=== PATIENT | male | born 1945 | race Caucasian/White ===

== ENCOUNTER 2017-09-22 10:27 | Emergency (ER) | payer MEDICARE, OTHER ==
--- OUTSIDE RECORDS SUMMARY | 2017-09-22 10:35 | XMS REPORT ---
:1945 External Reference #:[id number] Author Organization [facility] Address [address] [place] [address] Phone [phone] Care Team Providers Name Role Phone Arabella Portillo M.D. Primary Care Physician Unavailable Payers Type Date Identification Numbers Payment Provider Subscriber Medicare Primary Policy Number: [id number] Medicare - NGS Pal Caruso PayID: [id number] [address] [facility] [place] [address] Commercial Policy Number: [id number] [employer] Ppo/Pos/Epo/Nap Pal Caruso Group Number: [id number] [address] PayID: [id number] [place] [address] Problems Date Description Provider Status Onset: Carneous mole Active Note: BEHIND RIGHT EAR Onset: Kidney stone Active Onset: Type 2 diabetes mellitus Active Note: 2008 Onset: Pure hypercholesterolemia Active Onset: History of placement of stent for Active coronary artery disease Onset: 05/07/2016 Primary open angle glaucoma of left Pal Raymond M.D. Active eye Onset: 10/17/2014 Severe / Advanced / End Stage Glaucoma Pal Raymond M.D. Active Onset: 10/17/2014 Nuclear senile cataract Pal Raymond M.D. Active Onset: 10/17/2014 Primary open angle glaucoma Pal Raymond M.D. 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 every mornin g. Travatan Z 10/16 Active Solution 0.004% 1 drop Pal Zhu left Arleo, eye M.D. every night Benazepril HCL 00 Active Tablets 5mg 1 Unknown /0000 every day Nifedipine 00 Active Capsules 20mg every Unknown /0000 day Lipitor 00 Active Tablets 20mg Unknown /0000 Hydrochlorothiazide 0000 Active Tablets 25mg Unknown /0000 Aspir-[address] 81mg Unknown /0000 Metformin HCL ER 00 Active Tablets ER 1000mg every Unknown (Osm) /0000 24HR day Metoprolol Succinate Active Tablets ER 25mg once Maghaydah ER /0000 24HR daily , Qutajudson Rodriguez Fish Oil Active Capsules DR 1000mg 1 by Unknown /0000 mouth every day Pred Forte 11/05 Hx Suspension 1% 5ml One H40.1122 Pal Zhu drop Segundo - sheeba Gonzalez.DChance 12/24 times a day in the left eye for three days, then discon tinue. Multi For Him 50+ 00/00 Hx Tablets every Unknown /0000 day - 11/03 Clopidogrel Bisulfate Hx Tablets 75mg once Stefek, /0000 daily Wing Rodriguez - 10/18 Vital Signs Date Vital Result Comment 11/18/2016 BP Systolic 138 mmHg BP Diastolic 83 mmHg Heart Rate 74 /min Respiratory Rate 15 /min Results Description No Information Procedures Date CPT Code Description Status 04/29/2017 22250 Visual Field Exam Extended Completed 03/27/2017 08192 Scanning Computerized Ophthalmic Diagnostic Imag Completed Posterior Seg On 03/27/2017 58411 Est Patient Intermediate Exam Completed 11/18/2016 58809 Trabeculoplasty By Laser Surgery Completed 11/05/2016 48024 Visual Field Exam Extended Completed 11/05/2016 23857 Est Patient Intermediate Exam Completed 05/07/2016 69097 Est Patient Intermediate Exam Completed 10/20/2015 07220 Est Patient Comprehensive Exam Completed 10/20/2015 64963 Determination Of Refractive State Completed 10/20/2015 95534 Visual Field Exam Extended Completed 10/20/2015 51909 Scanning Computerized Ophthalmic Diagnostic Imag Completed Posterior Seg On 04/18/2015 11548 Est Patient Intermediate Exam Completed 10/17/2014 85869 Fundus Photography With Interpretation And Report Completed 10/17/2014 42900 Visual Field Exam Extended Completed 10/17/2014 61984 Est Patient Comprehensive Exam Completed 04/18/2014 27372 Gonioscopy Completed 04/18/2014 42756 Est Patient Intermediate Exam Completed 10/25/2013 71908 Visual Field Exam Extended Completed 10/25/2013 87475 Est Patient Intermediate Exam Completed 07/26/2013 54034 Est Patient Comprehensive Exam Completed 07/26/2013 85560 Scanning Computerized Ophthalmic Diagnostic Imag Completed Posterior Seg On 01/28/2013 97923 Visual Field Exam Extended Completed 01/21/2013 78025 Est Patient Intermediate Exam Completed 07/20/2012 39418 Fundus Photography With Interpretation And Report Completed 07/20/2012 73294 Est Patient Intermediate Exam Completed 03/03/2012 24958 Scanning Computerized Ophthalmic Diagnostic Imag Completed Posterior Seg On 03/03/2012 24320 Visual Field Exam Extended Completed 03/03/2012 45008 Est Patient Intermediate Exam Completed 06/27/2011 64222 Trabeculoplasty By Laser Surgery Completed 06/11/2011 84523 Visual Field Exam Extended Completed 05/20/2011 48391 Est Patient Intermediate Exam Completed 02/18/2011 05627 Visual Field Exam Extended Completed 02/18/2011 52577 Pachymetry Completed 02/08/2011 49970 Scanning Computerized Opthalmic Diagnostic Posterior Completed Seg Retina 02/08/2011 60739 Est Patient Comprehensive Exam Completed 12/23/2008 12148 Est Patient Comprehensive Exam Completed 04/01/2007 13218 Est Patient Comprehensive Exam Completed 11/05/2004 86544 Determination Of Refractive State Completed 11/05/2004 27233 New Patient Comprehensive Exam Completed Encounters Type Date Location Provider CPT E/M Dx Office Visit 04/29/2017 Pal Raymond MD, [place], [address] H40.1122 9:45a pc M.D. E11.9 H25.13 Office Visit 12/25/2016 8:15a Pal Raymond MD, [place], [address] H40.1122 pc M.D. E11.9 H25.13 Office Visit 08/08/2011 9:15a Pal Raymond MD, Pal [place], [address] 365.11 pc M.D. 365.73 Office Visit 06/11/2011 9:15a Pal Raymond MD, Pal [place], [address] 365.11 pc M.D. 365.73 Plan of Care 08/28/2017 - Pal Raymond M.D.H40.1122 Primary open-angle glaucoma, left eye , moderate stageComments:Smoking can increase the risk of developing or worsening any eye related disease, as well as affect your overall health. If you are a smoker, we strongly recommend that you quit.If you are not a smoker, we strongly recommend that you do not start. Your glaucoma is stable at this time in your left eye.Your eye pressure is within an acceptable range, and your testing does not show any further deterioration at this time. Please continue your treatment as directed and keep follow up appointments.Follow up:4 Month Follow Up DFE/IOP OCT ON Visual Field 30-2 You can expect to have your eyes dilated at yournext visit. If Dr. Raymond orders any additional testing, it may require extra time. We recommend thatyou bring sunglasses, as dilation drops often make you light sensitive until they wear off. We always recommend you bring someone to drive you home if you are uncomfortable driving with your eyes dilated. If you have any questions before your next visit, feel free to call our office at .e11.4 Type 2 diabetes mellitus without complicationsComments:You have diabetes. I do not detect any changes in both of your retinas from diabetes at this time. Proper control of your diabetes is important for the health of your eyes. Changes in your eyes from diabetes can happen without symptoms, so it is important that you have your eyes examined. Dr. Raymond has sent a report to your primary care doctor, letting them know there is no damage from the Diabetes in your eyes.H25.13 Age-related nuclear cataract, bilateralComments:You have been diagnosed with cataracts. If you are happy with your vision as it is now, then we willsee you at your next scheduled appointment. If you feel like your vision is getting worse before your scheduled appointment, please call Ying or Kathleen at [phone].
[2017-09-22 11:04] VITALS: BP 97/65
--- NOTE | 2017-09-22 12:05 | UC ---
Wero Zurita Gabriel, scribed for Vishal Orellana MD on 09/22/17 at 1052 . General HPI - HPI Summary HPI Summary: This patient is a 72 year old M presenting to [facility] accompanied by his with a chief complaint of watery diarrhea that began 5 days ago. The patient rates the pain 0/10 in severity. Patient reports fatigue. Patient denies vomiting, dehydration, pain, nausea, and blood in his stool. Pt had fever, chills, and myalgia that resolved after the first day. No recent abx use. - History of Current Complaint Stated Complaint: DIARRHEA Time Seen by Provider: 09/22/17 10:44 Hx Obtained From: Patient Onset/Duration: Lasting Days - 5, Still Present Timing: Intermittent Episodes Lasting: Onset Severity: Mild Current Severity: Mild Pain Intensity: 0 Associated Signs & Symptoms: Positive: Other - diarrhea and fatigue. Negative: Abdominal Pain, Edema, Nausea, Vomiting - Allergy/Home Medications Allergies/Adverse Reactions: Allergies Allergy/AdvReac Type Severity Reaction Status Date / Time phenytoin [From Dilantin] Allergy Itching Verified 09/22/17 10:38 PMH/Surg Hx/FS Hx/Imm Hx Endocrine History: Diabetes Cardiovascular History: Hypertension GI/ History: Kidney Stones Other History Of: Negative For: HIV - Surgical History Surgical History: Yes Surgery Procedure, Year, and Place: 1986 brain aneurysm [facility]. [place] [facility]STOSCOPY, RIGHT RETROGRADE, URETERAL DILATION, URETEROSCOPY, [place]RETERAL [place] [facility] [place] 2 CARDIAC [place] [facility]ITH[place] [facility] - Family History Known Family History: Negative: Renal Disease, Seizure Disorder - Social History Occupation: Employed Full-time Lives: With Family Alcohol Use: Daily Alcohol Amount: 3 beers/day Substance Use Type: None Smoking Status (MU): Former Smoker Type: Cigarettes Amount Used/How Often: 2PPD 25 YEARS Length of Time of Smoking/Using Tobacco: 25 YEARS Have You Smoked in the Last Year: No When Did the Patient Quit Smoking/Using Tobacco: 1986 - Immunization History Most Recent Influenza Vaccination: 2012 Most Recent Tetanus Shot: unknown Most Recent Pneumonia Vaccination: never Review of Systems Constitutional: Fatigue Gastrointestinal: Diarrhea All Other Systems Reviewed And Are Negative: Yes Physical Exam - Summary Physical Exam Summary: General: well-appearing, no pain distress Skin: warm, color reflects adequate perfusion, dry Head: normal Eyes: EOMI, TENZIN ENT: normal Neck: supple, nontender Respiratory: CTA, breath sounds present Cardiovascular: RRR Abdomen: soft, mildly TTP in the left lower lateral ABD without rebound or guarding Bowel: normal Musculoskeletal: normal, strength/ROM intact Neurological: sensory/motor intact, A&O x3 Psychological: affect/mood appropriate Triage Information Reviewed: Yes Vital Signs: Initial Vital Signs Temp 99.9 F 09/22/17 10:43 Pulse 77 09/22/17 10:43 Resp 18 09/22/17 10:43 BP 97/65 09/22/17 10:43 Pulse Ox 96 09/22/17 10:43 Vital Signs Reviewed: Yes Course/Dx - Course Course Of Treatment: NO C/O ABD PAIN OR FEVER. HAS NOT SEEN ANY BLOOD IN HIS STOOL. NO HX DEVERTICULITIS OR ABD SURGERY. DISCUSSED IV FLUIDS IN CLINIC. THE PATIENT STATED HE FELT HE COULD DRINK FLUIDS ENOUGH TO KEEP FROM GETTING DEHYDRATED. ON EXAM, THERE IS A MINIMALLY TENDER AREA IN THE LLQ WITHOUT REBOUND. AT THIS TIME, THE PLAN IS TO CONTINUE PO HYDRATION AND AWAIT STOOL/ LAB RESULTS TO DETERMINE NEED FOR ABX/IVF. IF STOOL RESULTS ARE NORMAL, THE PATIENT MAY START USING IMMODIUM DIRECTED. WE DISCUSSED GOING TO THE ED FOR PAIN, FEVER, DEHYDRATION, BLOOD IN THE STOOL OR ANY CONCERNS. - Differential Dx - Multi-Symptom Provider Diagnoses: DIARRHEA Discharge - Sign-Out/Discharge Documenting (check all that apply): Discharge/Admit/Transfer - Discharge Plan Condition: Stable Disposition: HOME Patient Education Materials: Acute Diarrhea (ED) Referrals: Arabella Maurice MD [Primary Care Provider] - Additional Instructions: FOLLOW UP WITH YOUR DOCTOR. THE RESULTS OF YOUR STOOL TESTS AND BLOOD WORK ARE PENDING. GET RECHECKED FOR ANY WORSENING OF YOUR CONDITION; PAIN, FEVER, DEHYDRATION, YOU FEEL ILL OR QUESTIONS OR CONCERNS. - Billing Disposition and Condition Condition: STABLE Disposition: HOME The documentation as recorded by the Wero wen Gabriel accurately reflects the service I personally performed and the decisions made by me, Vishal Orellana MD.
[2017-09-22 14:10] LABS: Hematocrit 42 % (42-52); Hemoglobin 14.3 g/dl (14.0-18.0); Mean Corpuscular HGB Conc 34 g/dl (31-36); Mean Corpuscular Hemoglobin 30 pg (27-31); Mean Corpuscular Volume 86 fL (80-94); Mean Platelet Volume 8.1 um3 (7.4-10.4); Platelet Count 247 10^3/ul (150-450); Red Blood Count 4.84 10^6/ul (4.0-5.4); Red Cell Distribution Width 13 % (10.5-15)
[2017-09-22 14:35] LABS: ABS Basophils 0 10^3/ul (0-0.2); ABS Eosinophils 0 10^3/ul (0-0.6); ABS Lymphocytes 1.4 10^3/ul (1.0-4.8); ABS Monocytes 2.4 10^3/ul (0-0.8); ABS Neutrophils 7.2 10^3/ul (1.5-7.7)
[2017-09-22 14:37] LABS: Monocytes % 17 % (0-7)
--- NOTE | 2017-09-23 08:26 | UC ---
- Progress Note Progress Note: RN to call pt. Advised to go to the Emergency Departement. I spoke RN at Dr. Portillo's office 08:30am. Hx DM. Highly elevated CRP. + fecal blood + lactoferrin. Bglucose 210mg / dl. Discharge - Sign-Out/Discharge Documenting (check all that apply): Post-Discharge Follow Up - Discharge Plan Condition: Stable Disposition: HOME Patient Education Materials: Acute Diarrhea (ED) Referrals: Arabella Portillo MD [Primary Care Provider] - Additional Instructions: FOLLOW UP WITH YOUR DOCTOR. THE RESULTS OF YOUR STOOL TESTS AND BLOOD WORK ARE PENDING. GET RECHECKED FOR ANY WORSENING OF YOUR CONDITION; PAIN, FEVER, DEHYDRATION, YOU FEEL ILL OR QUESTIONS OR CONCERNS. - Billing Disposition and Condition Condition: STABLE Disposition: HOME
== END 2017-09-22 11:55 | disposition home or self-care (01) ==
LOC: UCEAST 10:27
DX: R19.7 Diarrhea, unspecified (principal); R53.83 Other fatigue; E11.9 Type 2 diabetes mellitus without complications; Z79.84 Long term (current) use of oral hypoglycemic drugs; I10 Essential (primary) hypertension; Z87.442 Personal history of urinary calculi; Z95.5 Presence of coronary angioplasty implant and graft; Z88.8 Allergy status to other drugs, medicaments and biological substances; Z87.891 Personal history of nicotine dependence
CPT/HCPCS: 36415; 80053; 82270; 83630; 85025; 86140; 87045; 87046; 87077; 87328; 87329; 87493; 99201; G0463

== ENCOUNTER 2017-09-23 09:57 | Emergency (ER) | payer MEDICARE, OTHER ==
[2017-09-23] MEDS ORDERED: NS 0.9% 1000 ML* 1,000 ML IV ONE ×2 (10:21→11:55)
[2017-09-23 10:58] LABS: Hematocrit 41 % (42-52); Hemoglobin 14.1 g/dl (14.0-18.0); Mean Corpuscular HGB Conc 35 g/dl (31-36); Mean Corpuscular Hemoglobin 30 pg (27-31); Mean Corpuscular Volume 85 fL (80-94); Mean Platelet Volume 7.6 um3 (7.4-10.4); Platelet Count 257 10^3/ul (150-450); Red Blood Count 4.79 10^6/ul (4.0-5.4); Red Cell Distribution Width 13 % (10.5-15); White Blood Count 9.9 10^3/ul (3.5-10.8)
[2017-09-23 11:48] LABS: EGFR Non-African American 59.7 (>60)
[2017-09-23] MEDS ORDERED: Potassium Chlor TAB* 20 MEQ TAB.ER PO ONE (11:54)
[2017-09-23 11:57] LABS: Urine Appearance Cloudy; Urine Blood Negative (Negative); Urine Color Amber; Urine Ketones Negative (Negative); Urine Protein Negative (Negative); Urine Specific Gravity 1.016 (1.010-1.030); Urine Urobilinogen Negative (Negative)
[2017-09-23 12:28] LABS: ABS Basophils 0 10^3/ul (0-0.2); ABS Eosinophils 0.1 10^3/ul (0-0.6); ABS Lymphocytes 1.4 10^3/ul (1.0-4.8); ABS Monocytes 2.3 10^3/ul (0-0.8); ABS Neutrophils 6.1 10^3/ul (1.5-7.7); ABS Nucleated RBC 0 10^3/ul; Eosinophil % 0.7 % (0-6); Lymphocyte % 14.2 % (25-47); Nucleated Red Blood Cells % 0.2
[2017-09-23] MEDS ORDERED: Magnesium Oxide TAB* 400 MG PO ONE (13:15)
[2017-09-23] MEDS ORDERED: Diphenoxylat/Atrop 2.5-0.025M* 1 TAB PO ONE (13:15)
[2017-09-23 13:38] VITALS: BP 116/64
--- NOTE | 2017-09-24 13:26 | UC ---
- Progress Note Progress Note: Pt's stool sample, both from UC and ED resulted postive for Campylobacter. Spoke with PCP office -Dr. Ramirez - pt was seen the office at 12:[address] Ramirez - updated results She will call patient and arrange plan of care regarding consideration of abx reports pt was feeling better today [facility] 09/24/3017 14:15 Course/Dx - Diagnoses Provider Diagnoses: Diarrhea Discharge - Sign-Out/Discharge Documenting (check all that apply): Post-Discharge Follow Up - Discharge Plan Condition: Stable Disposition: HOME Prescriptions: Diphenoxylat/Atrop 2.5-0.025M* [Lomotil TAB*] 1 tab PO QID PRN #10 tab MDD 4 PRN Reason: Diarrhea Patient Education Materials: Acute Diarrhea (ED) Referrals: Arabella Maurice MD [Primary Care Provider] - 3 Days Additional Instructions: Please follow up with your primary care provider. RETURN TO THE ED FOR ANY NEW OR WORSENING SYMPTOMS. - Billing Disposition and Condition Condition: STABLE Disposition: HOME
--- NOTE | 2017-09-25 21:21 | ED ---
Josue Zurita Angela, scribed for Lai Molina MD on 09/23/17 at 1051 . GI/ HPI - HPI Summary HPI Summary: This pt is a 72 y/o male [facility] for the past 5 days. Pt reports he has had watery diarrhea, non bloody and without mucous. Denies abd pain, nausea, vomiting, fever. He states he has had chills and cold sweats associated. He denies recent antibiotic use in the past several weeks. Pt denies recent travel and sick contacts. He went to Urgent Care yesterday and was told to come to the ED for abnormal blood results. Pt denies having any of these symptoms in the past before. - History of Current Complaint Chief Complaint: EDGeneral Time Seen by Provider: 09/23/17 10:21 Stated Complaint: DIARRHEA,ABNORMAL BLOODWORK-SENT F/CC Hx Obtained From: Patient Onset/Duration: Started Days Ago, Still Present Timing: Lasting Days Current Severity: None Pain Intensity: 0 - denies pain Associated Signs and Symptoms: Positive: Diarrhea, Chills. Negative: Nausea, Vomiting, Black Tarry Stool, Bright Red Blood w/Stool, Blood w/Stool, Fever, Abdominal Pain Aggravating Factor(s): Nothing Alleviating Factor(s): Nothing - Allergy/Home Medications Allergies/Adverse Reactions: Allergies Allergy/AdvReac Type Severity Reaction Status Date / Time phenytoin [From Dilantin] Allergy Itching Verified 09/23/17 10:08 Home Medications: Home Medications Aspirin EC TAB* [Ecotrin EC Low Dose 81 MG*] 81 mg PO DAILY 09/23/17 [History Confirmed 09/23/17] Benazepril (NF) [Lotensin (NF)] 40 mg PO DAILY 09/23/17 [History Confirmed 09/23] Metformin ER (NF) 1,000 mg PO BID 09/23/17 [History Confirmed 09/23/17] NIFEdipine ER TAB* [Procardia Xl TAB*] 90 mg PO DAILY 09/23/17 [History Confirmed 09/23/17] Timolol 0.5% OPTH.FORTINO* [Timoptic 0.5% Opth*] 1 drop LEFT EYE QAM 09/23/17 [ History Confirmed 09/23/17] PMH/Surg Hx/FS Hx/Imm Hx Endocrine/Hematology History: Reports: Hx Diabetes - TYPE 2, ON METFORMAN BID Cardiovascular History: Reports: Hx Aneurysm, Hx Coronary Artery Disease - CARDIAC STENT X 2 2013, CHOLESTEROL CONTROL WITH MEDS, Hx Hypercholesterolemia, Hx Hypertension - ON DAILY MEDS Respiratory History: Reports: Hx Sleep Apnea History: Reports: Hx Kidney Stones - Hx OF, SOME PASSED BY PT, SOME SHOCKWAVE , 1 CURRENT ON RIGHT Sensory History: Reports: Hx Contacts or Glasses - READING GLASSES, Hx Glaucoma - DAILY DROP, LEFT EYE Denies: Hx Hearing Aid Opthamlomology History: Reports: Hx Contacts or Glasses - READING GLASSES, Hx Glaucoma - DAILY DROP, LEFT EYE Neurological History: Reports: Other Neuro Impairments/Disorders - brain aneurysm 1986 - Surgical History Surgery Procedure, Year, and Place: 1986 brain aneurysm [facility]. 2007 UMBILICAL HERNIAL REPAIR, [facility]. 2010 CYSTOSCOPY, RIGHT RETROGRADE, URETERAL DILATION, URETEROSCOPY, URETERAL STONE EXTRACTION, [facility]. 11/11/2013 2 CARDIAC STENTS, [facility]. 01/2015 LITHOTRIPSY LEFT RENAL CALCULUS, [facility] Anesthesia Reactions: No Infectious Disease History: No Infectious Disease History: Denies: Traveled Outside the [place] in Last 30 Days - Family History Known Family History: Negative: Renal Disease, Seizure Disorder - Social History Alcohol Use: Daily Alcohol Amount: 3 beers/day Substance Use Type: Reports: None Smoking Status (MU): Former Smoker Type: Cigarettes Amount Used/How Often: 2PPD 25 YEARS Length of Time of Smoking/Using Tobacco: 25 YEARS Have You Smoked in the Last Year: No Review of Systems Constitutional: Other - cold sweats Positive: Chills. Negative: Fever ENT: Negative Cardiovascular: Negative Positive: Diarrhea. Negative: Abdominal Pain, Vomiting, Nausea Musculoskeletal: Negative Skin: Negative Neurological: Negative All Other Systems Reviewed And Are Negative: Yes Physical Exam - Summary Physical Exam Summary: VITAL SIGNS: Reviewed. GENERAL: Patient is a well-developed and nourished male who is lying comfortable in the stretcher. Patient is not in any acute respiratory distress. HEAD AND FACE: No signs of trauma. No ecchymosis, hematomas or skull depressions. No sinus tenderness. EYES: PERRLA, EOMI x 2, No injected conjunctiva, no nystagmus. EARS: Hearing grossly intact. Ear canals and tympanic membranes are within normal limits. MOUTH: Oropharynx within normal limits. NECK: Supple, trachea is midline, no adenopathy, no JVD, no carotid bruit, no c- spine tenderness, neck with full ROM. CHEST: Symmetric, no tenderness at palpation LUNGS: Clear to auscultation bilaterally. No wheezing or crackles. CVS: Regular rate and rhythm, S1 and S2 present, no murmurs or gallops appreciated. ABDOMEN: Soft, non-tender. No signs of distention. No rebound no guarding, and no masses palpated. Bowel sounds are normal. EXTREMITIES: FROM in all major joints, no edema, no cyanosis or clubbing. NEURO: Alert and oriented x 3. No acute neurological deficits. Speech is normal and follows commands. SKIN: Dry and warm Triage Information Reviewed: Yes Vital Signs On Initial Exam: Initial Vitals Temp Pulse Resp BP Pulse Ox 98.1 F 79 16 98/60 99 09/23/17 10:05 09/23/17 10:05 09/23/17 10:05 09/23/17 10:05 09/23/17 10:05 Vital Signs Reviewed: Yes Diagnostics - Vital Signs Vital Signs Temp Pulse Resp BP Pulse Ox 09/23/17 10:44 99/65 09/23/17 10:05 98.1 F 79 16 98/60 99 - Laboratory Result Diagrams: 09/23/17 10:38 09/23/17 10:38 Lab Statement: Any lab studies that have been ordered have been reviewed, and results considered in the medical decision making process. - EKG 10:27 Cardiac Rate: NL - at 75 bpm EKG Rhythm: Sinus Rhythm EKG Interpretation: No ST elevation. T wave inversion in lead III. Q waves in III, aVF. Re-Evaluation - Re-Evaluation First Eval Re-Evaluation Time: 13:21 Comment: I reviewed the lab results with the pt. He will be discharged home. GIGU Course/Dx - Course Assessment/Plan: Pt is a 72 y/o male presenting to [facility] c/o diarrhea for the past 5 days. Pt reports he has had watery diarrhea, non bloody and without mucous. Denies abd pain, nausea, vomiting, fever. He states he has had chills and cold sweats associated. He denies recent antibiotic use in the past several weeks. Pt denies recent travel and sick contacts. Test results without any significant abnormalities except for sodium of 128, potassium of 3, for which he was given potassium chloride, creatinine of 1.2, magnesium of 1.6, for which he was given magnesium oxide, CRP of 124. I did give the pt a couple of liters of IV fluids and the pt reports he feels better. He was able to give us a urine sample and it is negative for UTI. He provided a stool sample and is negative for C. diff. The rest of the stool culture is pending at this time. The pt was also given Lomotil since the C. diff was negative. Since the pt does not have abdominal pain, nausea, or vomiting, I think the pt can be discharged home with follow up from his PCP. I will give the pt a prescription for Lomotil for 2 days. I discussed all the findings and test results with the patient. All questions were answered to patient satisfaction. There were no further complaints or concerns. Pt is hemodynamically stable, alert and oriented x3. He was recommended to return to the ED for fever, chills, nausea, vomiting or any other worsening symptoms. - Diagnoses Provider Diagnoses: Diarrhea Discharge - Sign-Out/Discharge Documenting (check all that apply): Discharge/Admit/Transfer - discharge - Discharge Plan Condition: Stable Disposition: HOME Prescriptions: Diphenoxylat/Atrop 2.5-0.025M* [Lomotil TAB*] 1 tab PO QID PRN #10 tab MDD 4 PRN Reason: Diarrhea Patient Education Materials: Acute Diarrhea (ED) Referrals: Arabella Maurice MD [Primary Care Provider] - 3 Days Additional Instructions: Please follow up with your primary care provider. RETURN TO THE ED FOR ANY NEW OR WORSENING SYMPTOMS. The documentation as recorded by the Josue wen Angela accurately reflects the service I personally performed and the decisions made by me, Lai Molina MD.
== END 2017-09-23 13:36 | disposition home or self-care (01) ==
LOC: ED 09:57
DX: R19.7 Diarrhea, unspecified (principal); E11.9 Type 2 diabetes mellitus without complications; I10 Essential (primary) hypertension; E78.00 Pure hypercholesterolemia, unspecified; Z79.84 Long term (current) use of oral hypoglycemic drugs; Z79.899 Other long term (current) drug therapy; Z87.891 Personal history of nicotine dependence; Z88.8 Allergy status to other drugs, medicaments and biological substances
CPT/HCPCS: 36415; 80053; 81003; 82140; 82150; 82272; 83605; 83630; 83690; 83735; 85025; 86140; 87040; 87045; 87046; 87077; 87493; 87899; 93005; 96360; 99283; A9270-GY

== ENCOUNTER 2018-03-03 19:43 | Emergency (ER) | payer MEDICARE, OTHER ==
[2018-03-03 19:55] VITALS: BP 136/68
--- NOTE | 2018-03-03 20:10 | UC ---
Minor Trauma HPI - HPI Summary HPI Summary: The patient is a 72-year-old male who fell on Friday landing against the dresser. He has had some left-sided mid to lower back pain. He has had extensive bruising of the left back and flank. He is not having severe pain. He is not short of breath. He has not noticed any blood in his urine. - History of Current Complaint Chief Complaint: UCTrauma Stated Complaint: FLANK INJURY Time Seen by Provider: 03/03/18 19:48 Hx Obtained From: Patient Onset/Duration: Sudden Onset, Lasting Days Onset Of Pain: Immediate Severity Initially: Moderate Severity Currently: None Pain Intensity: 0 Pain Scale Used: 0-10 Numeric Mechanism Of Injury: Fall From A Standing Position Aggravating Factor(s): Other: - laying on injured area Alleviating Factor(s): Nothing Associated Signs And Symptoms: Positive: Ecchymosis, Swelling Body - Head: 1 - hematoma 2 - ecchymosis - Allergies/Home Medications Allergies/Adverse Reactions: Allergies Allergy/AdvReac Type Severity Reaction Status Date / Time phenytoin [From Dilantin] Allergy Itching Verified 03/03/18 19:55 Home Medications: Home Medications Aspirin 81 mg CHEW TAB* [Aspirin Low Dose TAB*] 81 mg PO DAILY 03/03/18 [ History Confirmed 03/03/18] Ibuprofen TAB* [Advil TAB*] 400 mg PO PRN 03/03/18 [History] PMH/Surg Hx/FS Hx/Imm Hx Previously Healthy: Yes Endocrine History: Diabetes, Dyslipidemia Cardiovascular History: Cardiac Disease, Hypertension Other History Of: Negative For: HIV - Surgical History Surgical History: Yes Surgery Procedure, Year, and Place: 1986 brain aneurysm [facility]. 2007 [place] [facility] [place] CYSTOSCOPY, RIGHT RETROGRADE, URETERAL DILATION, URETEROSCOPY, [place] ST[place]TRA[place] [facility] [place]/11/2013 2 CARD[place] [place], [facility] [place]/2015 LITHOTRIP[place] [facility] [place] - Family History Known Family History: Positive: Hypertension Negative: Renal Disease, Seizure Disorder - Social History Alcohol Use: Daily Alcohol Amount: 1 BEER/DAY Substance Use Type: None Smoking Status (MU): Former Smoker Type: Cigarettes Amount Used/How Often: 2PPD 25 YEARS Length of Time of Smoking/Using Tobacco: 25 YEARS Have You Smoked in the Last Year: No When Did the Patient Quit Smoking/Using Tobacco: 1986 - Immunization History Most Recent Influenza Vaccination: 2012 Most Recent Tetanus Shot: unknown Most Recent Pneumonia Vaccination: never Review of Systems Constitutional: Negative Skin: Bruising Eyes: Negative ENT: Negative Respiratory: Negative Cardiovascular: Negative Gastrointestinal: Negative Genitourinary: Negative Motor: Negative Neurovascular: Negative Musculoskeletal: Negative Neurological: Negative Psychological: Negative All Other Systems Reviewed And Are Negative: Yes Physical Exam Triage Information Reviewed: Yes Appearance: Well-Appearing, No Pain Distress, Well-Nourished Vital Signs: Initial Vital Signs Temp 99.6 F 03/03/18 19:49 Pulse 78 03/03/18 19:49 Resp 16 03/03/18 19:49 BP 136/68 03/03/18 19:49 Pulse Ox 99 03/03/18 19:49 Vital Signs Reviewed: Yes Eyes: Positive: Conjunctiva Clear ENT: Positive: Hearing grossly normal. Negative: Nasal congestion, Nasal drainage, Trismus, Muffled voice, Hoarse voice Neck: Positive: Supple, Nontender Respiratory: Positive: Chest non-tender, Lungs clear, Normal breath sounds, No respiratory distress Cardiovascular: Positive: RRR, No Murmur Abdomen Description: Positive: Nontender, No Organomegaly, Soft Musculoskeletal: Positive: ROM Intact, No Edema Neurological: Positive: Alert Psychological Exam: Normal Skin Exam: Normal Diagnostics - Laboratory Diagnostic Studies Completed/Ordered: UA (-) for blood - Radiology No standard instances Radiology Interpretation Completed By: ED Physician Summary of Radiographic Findings: no rib fx noted by me Minor Trauma Course/Dx - Differential Dx/Diagnosis Provider Diagnoses: Hematoma left lower back Discharge - Sign-Out/Discharge Documenting (check all that apply): Patient Departure All imaging exams completed and their final reports reviewed: No - Discharge Plan Condition: Stable Disposition: HOME Referrals: Arabella Maurice MD [Primary Care Provider] - - Billing Disposition and Condition Condition: STABLE Disposition: Home
[2018-03-04 11:15] LABS: Hematocrit 32 % (42-52); Hemoglobin 10.8 g/dl (14.0-18.0); Mean Corpuscular HGB Conc 35 g/dl (31-36); Mean Corpuscular Hemoglobin 30 pg (27-31); Mean Corpuscular Volume 88 fL (80-94); Mean Platelet Volume 8.3 fL (7.4-10.4); Platelet Count 232 10^3/ul (150-450); Red Blood Count 3.59 10^6/ul (4.00-5.40); Red Cell Distribution Width 13 % (10.5-15); White Blood Count 11.3 10^3/ul (3.5-10.8)
[2018-03-04 11:40] LABS: ABS Basophils 0.1 10^3/ul (0-0.2); ABS Eosinophils 0.2 10^3/ul (0-0.6); ABS Monocytes 1.7 10^3/ul (0-0.8); ABS Neutrophils 6.3 10^3/ul (1.5-7.7); ABS Nucleated RBC 0 10^3/ul; Eosinophil % 1.4 % (0-6); Lymphocyte % 26.4 % (25-47); Nucleated Red Blood Cells % 0.1
--- NOTE | 2018-03-04 16:01 | UC ---
- Results/Orders Results/Orders: please let pt know his blood count is a little low due to the hematoma Discharge - Sign-Out/Discharge Documenting (check all that apply): Post-Discharge Follow Up All imaging exams completed and their final reports reviewed: Yes - Discharge Plan Condition: Stable Disposition: HOME Patient Education Materials: Hematoma (ED) Referrals: Halima Lindsey MD [Medical Doctor] - 3 Days Additional Instructions: A blood count is pending I suggest surgical follow up in case this needs to be aspirated or drained cool compresses tylenol 0fficial XR reading pending - Billing Disposition and Condition Condition: STABLE Disposition: Home
== END 2018-03-03 20:46 | disposition home or self-care (01) ==
LOC: UCEAST 19:43
DX: S30.0XXA Contusion of lower back and pelvis, initial encounter (principal); W01.190A Fall on same level from slipping, tripping and stumbling with subsequent striking against furniture, initial encounter; Y92.019 Unspecified place in single-family (private) house as the place of occurrence of the external cause; Z87.891 Personal history of nicotine dependence
CPT/HCPCS: 36415; 81003; 85025; 99211; G0463

== ENCOUNTER 2019-01-13 06:15 | Day surgery (SDC) | payer MEDICARE, OTHER ==
[~2019-01-13 06:15] MED LIST: Buffered Lidocaine 1% SYRIN* 1 ML/SYRINGE INTRADERM ONE; Proparacaine 0.5% OPHTH.SOL* 15 ML BTL ONE; mitoMYcin PWD* 0.2 MG in Sterile Water for Inj* 1 ML OPHTHALMIC SCH
[2019-01-13] MEDS ORDERED: Bupivacaine 0.25% SDV PF* 10 ML VIAL INJ ONE ×2 (07:11→07:30)
[2019-01-13] MEDS ORDERED: Povidone Iodine 5% OPTH* 30 ML BTL ONE (07:12)
[2019-01-13] MEDS ORDERED: Acetylcholine 1:100 OPTH* OPHTH.SOLN ONE (07:12)
[2019-01-13] MEDS ORDERED: Atropine 1% OPHTH.SOL* 1 DROP BTL 2-5 ML ONE (07:12)
[2019-01-13] MEDS ORDERED: Neomycin/Polymy/Dex OPTH.SUSP* MAXITROL 0.1% 5 ML ONE (07:12)
[2019-01-13] MEDS ORDERED: Lidocaine 2% w/ EPI 1:200,000* 20 ML SDV VIAL ONE ×2 (07:12→07:30)
[2019-01-13] MEDS ORDERED: Triamcinolone Acetonide* 40 MG/ML 1 ML VIAL ONE (07:12)
[2019-01-13] MEDS ORDERED: BSS OPTH.SOL* BTL ONE (07:12)
[2019-01-13] MEDS ORDERED: Hyaluronidase OVINE* 200 UNIT/ML ML SUBCUT ONE (07:13)
[2019-01-13] MEDS ORDERED: Carbachol 0.01% OPH.SOL* 1.5 ML OPHTH.SOLN ONE (07:16)
[2019-01-13] MEDS ORDERED: Midazolam* 1 MG/ML 2 ML VIAL (2 MG) ONE (07:16)
[2019-01-13] MEDS ORDERED: Sodium Bicarbonate 8.4% VIAL* 10 ML VIAL IV ONE (07:17)
[2019-01-13] MEDS ORDERED: fentaNYL* 50 MCG/ML 2 ML VIAL (100 MCG VIAL) ONE (07:35)
[2019-01-13] MEDS ORDERED: Propofol* 10 MG/ML 20 ML BTL ONE (07:45)
[2019-01-13 08:33] VITALS: BP 88/51
--- NOTE | 2019-01-13 21:38 | OP ---
DATE OF OPERATION: 01/13/19 [facility] DATE OF : 47 SURGEON: Pal Raymond MD. ANESTHESIA: Local with MAC. PRE-OP DIAGNOSIS: Uncontrolled glaucoma, left eye. POST-OP DIAGNOSIS: Uncontrolled glaucoma, left eye. OPERATIVE PROCEDURE: Trabeculectomy, left eye. COMPLICATIONS: None. DESCRIPTION OF PROCEDURE: The patient was given retrobulbar anesthesia in the operating room; 50:50 mixture of 0.25% Marcaine and 2% lidocaine, 1 vial of Vitrase added; 4 cc given in the muscle cone without difficulty. Eye was prepped and draped in the usual sterile fashion. Lid speculum was placed. A 6- 0 silk traction suture placed through the superior limbus and the eye rotated inferiorly. A fornix- based conjunctival peritomy was performed from the 12 o' clock to the 2 o'clock position using the Hector scissors. Mitomycin-C 0.2 mg /mL was soaked in a sponge and placed subtenon for 1 minute and thoroughly irrigated. A triangular limbal based half scleral thickness flap was made with the crescent blade. Anterior chamber entered deep with the 3 mm keratome. Miostat and then DisCoVisc instilled into the anterior chamber. Trabecular block 3 x 1 mm was excised using the Chelsea punch and the scleral flap sutured with one 10-0 nylon at its apex. The conjunctiva was closed using a running locking 10- 0 nylon suture and running locking 10-0 Vicryl suture. Paracentesis was made at the 3 o'clock position with the #75 blade. All traction sutures were removed. Anterior chamber reinflated with balanced salt solution. All wounds were found to be watertight. Kenalog 40 mg/mL, 1 mL, was given subtenon infratemporally, and topical atropine and Maxitrol given, and the eye was patched. [id number]/[facility] #: [id number] [facility]
== END 2019-01-13 08:50 | disposition home or self-care (01) ==
LOC: OREAST 06:15
PROVIDERS: ATTEND Specialist
DX: H40.1122 Primary open-angle glaucoma, left eye, moderate stage (principal); E11.9 Type 2 diabetes mellitus without complications; Z79.84 Long term (current) use of oral hypoglycemic drugs; E78.00 Pure hypercholesterolemia, unspecified; Z95.5 Presence of coronary angioplasty implant and graft; I25.10 Atherosclerotic heart disease of native coronary artery without angina pectoris; I10 Essential (primary) hypertension; Z85.828 Personal history of other malignant neoplasm of skin; G47.33 Obstructive sleep apnea (adult) (pediatric); E78.5 Hyperlipidemia, unspecified
CPT/HCPCS: A9270-GY; J2250; J2704; J3010; J3301; J3471; J3490; J9280

== ENCOUNTER 2019-08-08 14:55 | Emergency (ER) | payer MEDICARE, OTHER ==
--- OUTSIDE RECORDS SUMMARY | 2019-08-08 15:15 | XMS REPORT | Continuity of Care Document ---
:1945 External Reference #:[id number] Author Name Pal Raymond M.D. Address [address] [place] [address] Care Team Providers Name Role Phone Arabella Portillo M.D. - Family Care Team Information Irrigation Engineer [phone] Medicine Problems Active Problems Provider Date Carneous mole Onset: Note: BEHIND RIGHT EAR Kidney stone Onset: Type 2 diabetes mellitus Onset: Note: 2008 Pure hypercholesterolemia Onset: History of placement of stent for coronary Onset: artery disease Primary open angle glaucoma Pal Raymond M.D. Onset: 10/17/2014 Nuclear senile cataract Pal Raymond M.D. Onset: 10/17/2014 Severe / Advanced / End Stage Glaucoma Pal Raymond M.D. Onset: 2014 Primary open angle glaucoma of left eye Pal Raymond M.D. Onset: 2016 Squamous cell carcinoma Onset: Note: left side nose Sleep apnea Onset: Squamous cell carcinoma of skin of face Onset: Basal cell carcinoma of skin Onset: Hypertensive disorder Onset: Cholesteatoma Onset: Social History Type Date Description Comments Sex Unknown ETOH Use Consumes 2-3 beers per day Tobacco Use Start: Unknown End: Unknown Patient is a former smoker Recreational Drug Use Denies Drug Use Smoking Status Reviewed: 07/05/19 Patient is a former smoker Allergies, Adverse Reactions, Alerts Active Allergies Reaction Severity Comments Date Dilantin 10/17/2014 Medications Active Medications SIG Qnty Indications Ordering Date Provider Benazepril HCL 1 every day Unknown 5mg Tablets Nifedipine every day Unknown 20mg Capsules Hydrochlorothiazide Unknown 25mg Tablets Aspir-[address] Metformin HCL ER (Osm) every day Unknown 1000mg Tablets ER 24HR Metoprolol Succinate ER once daily Maghaydah, 25mg Qutaybeh M.D. Tablets ER 24HR Jardiance 1 a day Unknown 10mg Tablets Atorvastatin Calcium Take 1 Tablet Unknown 20mg Tablets By Mouth Every Day Metformin HCL ER Take 2 Tablets Unknown 750mg Tablets ER By Mouth Every 24HR Day AT Bedtime History Medications Erythromycin apply thin strip 1Tubes H40.1122 Tracy Mata, 04/17/2019 - 5mg/GM to left eye O.D. 04/20/2019 Ointment before bed Atropine Sulfate 1 drop left eye 5ml Pal Zhu 01/14/2019 - 1% three times a Jennifer Raymond 02/01/2019 Solution day Vigamox one drop left 3ml Pal Zhu 01/07/2019 - 0.5% Solution eye three times Jennifer Raymond 01/18/2019 a day, start the day before surgery Prednisolone Acetate 1 drops left eye 10ml Pal Zhu 01/07/2019 - three times a Jennifer Raymond 02/21/2019 1% Suspension day. taper as directed Travatan Z 1 drop Left eye Pal Zhu 01/05/2019 - 0.004% every night Jennifer Raymond 01/14/2019 Solution Immunizations Description No Information Available Vital Signs Date Vital Result Comment 06/15/2018 2:47pm BP Systolic 130 mmHg BP Diastolic 75 mmHg Heart Rate 74 /min 11/18/2016 2:30pm BP Systolic 138 mmHg BP Diastolic 83 mmHg Heart Rate 74 /min Respiratory Rate 15 /min Results Test Acquired Date Facility Test Result H/L Range Note Laboratory test 01/13/2019 [facility] [place] [facility] 135 mg/dL High 70-[address] [place] [address] [phone] - 5 [employer] Equipment Operator: [id number] Procedures Date Code Description Status 01/13/2019 56460 Fistulization Sclera For Glaucoma, Trabeculectomy AB Completed Externo 01/07/2019 29943 Est Patient Intermediate Exam Completed Medical Devices Description No Information Available Encounters Type Date Location Provider Dx Diagnosis Office Visit 04/19/2019 Maximiliano Valdes T15.12xA Foreign body in 11:45a , cj Augustine M.D. conjunctival sac, left eye, init encntr H40.1122 Primary open-angle glaucoma, left eye, moderate stage Office Visit 04/17/2019 1:00p Pal Gutierrez H40.1122 Primary MD Segundo, cj Mata O.D. open-angle glaucoma, left eye, moderate stage Assessments Date Code Description Provider 07/05/2019 H40.1122 Primary open-angle glaucoma, left eye, Pal Raymond M.D. moderate stage 07/05/2019 H40.1111 Primary open-angle glaucoma, right eye, Pal Raymond M.D. mild stage 07/05/2019 E11.9 Type 2 diabetes mellitus without Pal Raymond M.D. complications 07/05/2019 H25.13 Age-related nuclear cataract, bilateral Pal Raymond M.D. 04/19/2019 T15.12xA Foreign body in conjunctival sac, left Maximiliano Augustine M.D. eye, initial encounter 04/19/2019 H40.1122 Primary open-angle glaucoma, left eye, Maximiliano Augustine M.D. moderate stage 04/17/2019 H40.1122 Primary open-angle glaucoma, left eye, Tracy Mata O.D. moderate stage 04/05/2019 H40.1122 Primary open-angle glaucoma, left eye, Pal Raymond M.D. moderate stage 04/05/2019 H40.1111 Primary open-angle glaucoma, right eye, Pal Raymond M.D. mild stage 04/05/2019 E11.9 Type 2 diabetes mellitus without Pal Raymond M.D. complications 04/05/2019 H25.13 Age-related nuclear cataract, bilateral Pal Raymond M.D. 03/04/2019 H40.1122 Primary open-angle glaucoma, left eye, Pal Raymond M.D. moderate stage 02/02/2019 H40.1122 Primary open-angle glaucoma, left eye, Pal Raymond M.D. moderate stage 01/25/2019 H40.1122 Primary open-angle glaucoma, left eye, Pal Raymond M.D. moderate stage 01/18/2019 H40.1122 Primary open-angle glaucoma, left eye, Pal Raymond M.D. moderate stage 01/18/2019 H40.1111 Primary open-angle glaucoma, right eye, Pal Raymond M.D. mild stage 01/15/2019 H40.1122 Primary open-angle glaucoma, left eye, Kenzie Mercedes O.D. moderate stage 01/15/2019 H40.1111 Primary open-angle glaucoma, right eye, Kenzie Mercedes O.D. mild stage 01/15/2019 E11.9 Type 2 diabetes mellitus without Kenzie Mercedes O.D. complications 01/15/2019 H25.13 Age-related nuclear cataract, bilateral Kenzie Mercedes O.D. 01/14/2019 H40.1122 Primary open-angle glaucoma, left eye, Pal Raymond M.D. moderate stage 01/14/2019 H40.1111 Primary open-angle glaucoma, right eye, Pal Raymond M.D. mild stage 01/14/2019 E11.9 Type 2 diabetes mellitus without Pal Raymond M.D. complications 01/14/2019 H25.13 Age-related nuclear cataract, bilateral Pal Raymond M.D. 01/13/2019 H40.1122 Primary open-angle glaucoma, left eye, Pal Raymond M.D. moderate stage 01/07/2019 H40.1122 Primary open-angle glaucoma, left eye, Pal Raymond M.D. moderate stage 01/07/2019 H40.1111 Primary open-angle glaucoma, right eye, Pal Raymond M.D. mild stage 01/07/2019 E11.9 Type 2 diabetes mellitus without Pal Raymond M.D. complications 01/07/2019 H25.13 Age-related nuclear cataract, bilateral Pal Raymond M.D. Plan of Treatment 07/05/2019 - Pal Raymond M.D.H40.1122 Primary open-angle glaucoma, [...] up:4 Month Follow Up DFE/IOP OCT ON You can expect to have your eyes dilated at your next visit. If Dr. Raymond orders any additional testing, it may require extra time. We recommend that you bring sunglasses, as dilation drops often make you light sensitive until they wear off. We always recommend you bring someone to drive you home if you are uncomfortable driving with your eyes dilated. If you have any questions before your next visit, feel free to call our office at [phone].H40.1111 Primary open-angle glaucoma, right eye, mild stageComments: Your Glaucoma is stable at this time in your right eye. Your eye pressure is within an acceptable range, and your testing does not show any further deterioration at this time. Please continue your treatment as directed and keep follow up appointments.E11.9 Type 2 diabetes mellitus without complicationsComments:You have [...] worse before your scheduled appointment, please call Kathleen or Tiffany at [phone]. Functional Status Description No Information Available Mental Status Description No Information Available Referrals Description No Information Available
--- OUTSIDE RECORDS SUMMARY | 2019-08-08 15:15 | XMS REPORT | Continuity of Care Document ---
:1945 External Reference #:[id number] Author Name Edvin Pennington MD (transmitted by agent of provider Dary Booker) Address [address] [place] [address] Care Team Providers Name Role Phone Narendra Padron MD - Internal Care Team Information Manager Of Tires Sales [phone] Medicine Feng Madsen MD - Internal Care Team Information Manager Of Tires Sales [phone] Medicine Arabella Portillo MD - Family Care Team Information Manager Of Tires Sales Medicine Problems Active Problems Provider Date Hyperlipidemia Ray Rubio M.D. Onset: 10/05/2013 Benign essential hypertension Ray Rubio M.D. Onset: 10/05/2013 Electrocardiogram abnormal Ray Rubio M.D. Onset: 10/05/2013 Chest pain Ray Rubio M.D. Onset: 10/05/2013 Dyspnea Ray Rubio M.D. Onset: 10/18/2013 Type 2 diabetes mellitus Ray Rubio M.D. Onset: 10/18/2013 Coronary arteriosclerosis Ray Rubio M.D. Onset: 11/15/2013 Patient post percutaneous transluminal Ray Rubio M.D. Onset: coronary angioplasty Essential hypertension Ray Rubio M.D. Onset: 08/08/2015 Social History Type Date Description Comments Sex Unknown ETOH Use Denies alcohol use Tobacco Use Start: Unknown End: Patient is a former Unknown smoker Recreational Drug Use Denies Drug Use Tobacco Use Start: Unknown End: Patient is a former quit 1986 Unknown smoker Smoking Status Reviewed: 08/02/19 Patient is a former quit 1987 smoker Exercise Type/Frequency Exercises regularly walk 1 mile daily with his dog. Allergies, Adverse Reactions, Alerts Active Allergies Reaction Severity Comments Date Dilantin rash 11/06/2007 Medications Active Medications SIG Qnty Indications Ordering Provider Date Jardiance 10mg by mouth 90tabs E11.65 Edvin Pennington MD 10/28/2018 10mg daily Tablets Metformin HCL ER 2 tablets by 180tabs E11.9 Edvin Pennington MD 10/28/2018 mouth every day 750mg Tablets ER at bedtime 24HR Toprol XL 1 by mouth every 90tabs Qutaybeh S. 05/24/2014 25mg day Jennifer Rubio Tablets ER 24HR Freestyle [place] use as directed Nano Francis, 06/26/2009 Lite Glucometer by md Rodriguez Freestyle [place] qday and prn 50units Nereida, 06/26/2009 Lite Alexandr Mackey M.D. Freestyle [place] qday and prn 250.00 Nano Francis, 06/26/2009 Lite Test Strips #100 MChanceDChance Nifedipine 1 tab po qd 90tabs I10 Thananart, 02/13/2009 90mg Jennifer Lucio Tablets ER 24HR Benazepril HCL 1 tab po qd 90tabs V70.0 Thananart, 02/24/2008 40mg Jennifer Lucio Tablets HCTZ 1 PO qd 90units I10 Thananart, 02/24/2008 25mg. Jennifer Lucio Lipitor 1 tab po qd 90tabs Thananart, 11/06/2007 20mg Tablets Jennifer Lucio Asa 1 po qd 90units Thananart, 81mg Jennifer Lucio Cpap Mask And cpap mask of 1units 327.23 Thananart, Supplies choice, Use as Jennifer Lucio directed Sleep Aid 1 po qhs Unknown 50mg Capsules Immunizations CPT Code Status Date Vaccine Lot # [id number] Given 02/13/2013 Flu Vaccine Split Virus Preservative Free For Indiv 3Yr Older Vital Signs Date Vital Result Comment 05/03/2019 10:45am Weight 196.00 lb Heart Rate 72 /min BP Systolic 116 mmHg BP Diastolic 68 mmHg Respiratory Rate 16 /min Body Temperature 96.8 F 01/28/2019 10:41am Height 70 inches 5'10" Weight 199.00 lb w/ shoes Heart Rate 59 /min BP Systolic Sitting 98 mmHg BP Diastolic Sitting 59 mmHg BMI (Body Mass Index) 28.6 kg/m2 Results Description No Information Available Procedures Date Code Description Status 12/23/2008 947675297 Diabetic Retinal Eye Exam Completed Medical Devices Description No Information Available Encounters Type Date Location Provider Dx Diagnosis Office Visit 08/03/2019 [place] [facility] and Edvin Pennington MD E11.9 Type 2 diabetes 9:00a [facility] mellitus without complications Z79.84 long term acute care registered nurse (current) use of oral hypoglycemic drugs Office Visit 05/03/2019 10:45a Surgical Jamie Santoro S30.0xxD [facility], lower back and FACS pelvis, subsequent encounter Assessments Date Code Description Provider 08/03/2019 E11.9 Type 2 diabetes mellitus without Edvin Pennington MD complications 08/03/2019 Z79.84 long term acute care registered nurse (current) use of oral Edvin Pennington MD hypoglycemic drugs 05/03/2019 S30.0xxD Contusion of lower back and pelvis, Jamie Oneill MD, FACS subsequent encounter Plan of Treatment Future Appointment(s):09/08/2019 4:00 pm - [facility] at [facility]08/03/2019 - Edvin Pennington MDE11.9 Type 2 diabetes mellitus without kntrlhggetokvP40.84 senior living (current) use of oral hypoglycemic drugs Functional Status Description No Information Available Mental Status Description No Information Available Referrals Description No Information Available
--- OUTSIDE RECORDS SUMMARY | 2019-08-08 15:15 | XMS REPORT | Continuity of Care Document ---
:1945 External Reference #:[id number] Author Name Edvin Pennington MD (transmitted by agent of provider Gia Del Rosario) Address [address] [place] [address] Care Team Providers Name Role Phone Narendra Padron MD - Internal Care Team Information Coordinating Producer [phone] Medicine Feng Madsen MD - Internal Care Team Information Coordinating Producer Medicine Arabella Portillo MD - Family Care Team Information Coordinating Producer Medicine Problems Active Problems Provider Date Hyperlipidemia [...] day Jennifer Rubio Tablets ER 24HR Freestyle [place] use as directed Nano Francis, 06/26/2009 Lite Glucometer by md Rodriguez Freestyle [place] qday and prn 50units Nereida, 06/26/2009 Lite Alexandr Mackey M.D. Freestyle [place] qday and prn 250.00 Nano Francis, 06/26/2009 [...] CPT Code Status Date Vaccine Lot # [id number] Given 02/13/2013 Flu Vaccine Split Virus Preservative [...] Available Procedures Date Code Description Status 12/23/2008 002981485 Diabetic Retinal Eye Exam Completed Medical Devices Description No Information Available Encounters Type Date Location Provider Dx Diagnosis Office Visit 08/03/2019 [place] [facility] and Edvin Pennington, E11.65 Type 2 diabetes 9:00a [facility] mellitus with hyperglycemia Office Visit 05/03/2019 [facility] Jamie Santoro S30.0xxD Contusion of lower 10:45a [facility] MD, back and pelvis, FACS subsequent encounter Assessments Date Code Description Provider 08/03/2019 E11.65 Type 2 diabetes mellitus with Edvin Pennington MD hyperglycemia 05/03/2019 S30.0xxD Contusion of lower back and pelvis, Jamie Oneill MD, FACS subsequent encounter Plan of Treatment Future Appointment(s):09/08/2019 4:00 pm - Ray Rubio M.D. at [id number]/07/2020 - Edvin Pennington MDE11.65 Type 2 diabetes mellitus with hyperglycemia Functional Status Description No Information Available Mental Status Description No Information Available Referrals Description No Information Available
[2019-08-08 15:43] LABS: ABS Basophils 0.1 10^3/ul (0-0.2); ABS Eosinophils 0.1 10^3/ul (0-0.6); ABS Lymphocytes 1.8 10^3/ul (1.0-4.8); ABS Monocytes 0.5 10^3/ul (0-0.8); ABS Neutrophils 6.7 10^3/ul (1.5-7.7); Eosinophil % 0.9 %; Hematocrit 44 % (42-52); Hemoglobin 14.6 g/dL (14.0-18.0); Lymphocyte % 19.5 %; Mean Corpuscular HGB Conc 33 g/dL (31-36); Mean Corpuscular Hemoglobin 28 pg (27-31); Mean Corpuscular Volume 85 fL (80-94); Mean Platelet Volume 7.5 fL (7.4-10.4); Nucleated Red Blood Cells % 0.1; Platelet Count 228 10^3/uL (150-450); Red Blood Count 5.13 10^6 /uL (4.18-5.48); Red Cell Distribution Width 15 % (10-15)
--- NOTE | 2019-08-08 15:45 | ED ---
Abdominal Pain/Male - HPI Summary HPI Summary: Pt. is a 73 y.o male who presents to the ER for evaluation of upper abd. pain. Pt. states around 1 was reviewed and 030 today he was doing lawn work when he developed pressure across his upper abd. he describes as being his diaphragm. Pain did not radiate into back or chest. No associated sxs of SOB, dizziness, diaphoresis, syncope, N/V. Denies recent illness, fever, cough. Pt. states he took antacids and pain resolved. Pt. states pain came twice more and resolved. Pt. is currently pain free. Denies blood in stool or NSAID use. Denies ETOH use. Hx of remote smoking. Past medical hx of CAD, two coronary stents, HTN, HLD , DM, brain aneurysm with clip. Sxs are moderate in severity. No current modifying factors. - History of Current Complaint Chief Complaint: EDAbdPain Stated Complaint: UPPER ABD PAIN PER PT Time Seen by Provider: 08/08/19 15:25 Hx Obtained From: Patient Pain Intensity: 2 - Allergies/Home Medications Allergies/Adverse Reactions: Allergies Allergy/AdvReac Type Severity Reaction Status Date / Time phenytoin [From Dilantin] Allergy Unknown Itching Verified 08/08/19 15:07 Home Medications: Home Medications Atorvastatin* [Lipitor 20 MG*] 20 mg PO BEDTIME 03/18/13 [History Confirmed ] Hydrochlorothiazide TAB* [Hydrodiuril TAB*] 25 mg PO QAM 03/18/13 [History Confirmed 01/13/19] Travoprost Z 0.004% OPHTH (NF) [Travatan Z 0.004% OPTH (NF)] 1 drop LEFT EYE BEDTIME 03/18/13 [History Confirmed 01/13/19] Metoprolol Succinate XL TAB* [Toprol XL TAB*] 25 mg PO QAM 02/20/15 [History Confirmed 01/13/19] Benazepril (NF) [Lotensin (NF)] 40 mg PO QAM 09/23/17 [History Confirmed ] NIFEdipine ER TAB* [Procardia Xl TAB*] 90 mg PO QAM 09/23/17 [History Confirmed 01/13/19] Timolol 0.5% OPTH.FORTINO* [Timoptic 0.5% Opth*] 1 drop LEFT EYE QAM 09/23/17 [ History Confirmed 01/13/19] Aspirin 81 mg CHEW TAB* [Aspirin Low Dose TAB*] 81 mg PO QAM 03/03/18 [History Confirmed 01/13/19] Empagliflozin (NF) [Jardiance] 25 mg PO QAM 01/11/19 [History Confirmed 01/13/19 ] Ferrous Sulfate 325 mg PO QAM 01/11/19 [History Confirmed 01/13/19] Metformin ER (NF) [Glucophage ER 750 MG TAB (NF)] 1,500 mg PO DAILY 01/11/19 [ History Confirmed 01/13/19] PMH/Surg Hx/FS Hx/Imm Hx Previously Healthy: Yes Endocrine/Hematology History: Reports: Hx Diabetes - TYPE 2 FINGER STICK QAM NO COVERAGE Cardiovascular History: Reports: Hx Aneurysm, Hx Coronary Artery Disease - 2 CARDIAC STENTS PLACED FOR BLOCKAGE 2016 [facility] [place], Hx Hypercholesterolemia, Hx Hypertension, Other Cardiovascular Problems/Disorders - high cholesterol Respiratory History: Reports: Hx Sleep Apnea History: Reports: Hx Kidney Stones - Hx OF, SOME PASSED BY PT, SOME SHOCKWAVE , Sensory History: Reports: Hx Contacts or Glasses - READING GLASSES, Hx Glaucoma - DAILY DROP, LEFT EYE Denies: Hx Hearing Aid Opthamlomology History: Reports: Hx Contacts or Glasses - READING GLASSES, Hx Glaucoma - DAILY DROP, LEFT EYE Neurological History: Reports: Other Neuro Impairments/Disorders - brain aneurysm 1986- resolved - Cancer History Hx Chemotherapy: No - Surgical History Surgery Procedure, Year, and Place: 1986 brain aneurysm [facility]. 2007 UMBILICAL HERNIAL REPAIR, [facility] [place]. 2010 CYSTOSCOPY, RIGHT RETROGRADE, URETERAL DILATION, URETEROSCOPY, URETERAL STONE EXTRACTION, [facility] [place]. 11/11/2013 2 CARDIAC STENTS, [facility] [place]. 01/2015 LITHOTRIPSY LEFT RENAL CALCULUS, [facility] [place] Hx Anesthesia Reactions: No Infectious Disease History: No Infectious Disease History: Denies: Traveled Outside the [place] in Last 30 Days - Family History Known Family History: Positive: Hypertension Negative: Renal Disease, Seizure Disorder - Social History Alcohol Use: None Alcohol Amount: 1 BEER/DAY Substance Use Type: Reports: None Smoking Status (MU): Former Smoker Type: Cigarettes Amount Used/How Often: 2PPD 25 YEARS Length of Time of Smoking/Using Tobacco: 25 YEARS Have You Smoked in the Last Year: No Review of Systems Constitutional: Negative Negative: Fever, Chills Cardiovascular: Negative Negative: Palpitations, Chest Pain Respiratory: Negative Negative: Shortness Of Breath, Cough Positive: Abdominal Pain. Negative: Vomiting, Diarrhea, Nausea Genitourinary: Negative Musculoskeletal: Negative Skin: Negative Neurological/Mental Status: Negative All Other Systems Reviewed And Are Negative: Yes Physical Exam Triage Information Reviewed: Yes Vital Signs On Initial Exam: Initial Vitals Temp Pulse Resp BP Pulse Ox 98.4 F 63 16 135/73 98 08/08/19 15:04 08/08/19 15:04 08/08/19 15:04 08/08/19 15:04 08/08/19 15:04 Vital Signs Reviewed: Yes Appearance: Positive: Well-Appearing - Pt. sitting up in bed in NAD. Pleasant. Skin: Positive: Warm, Dry Head/Face: Positive: Normal Head/Face Inspection Eyes: Positive: Normal, EOMI Neck: Positive: Supple Respiratory/Lung Sounds: Positive: Clear to Auscultation, Breath Sounds Present. Negative: Rales, Wheezes Cardiovascular: Positive: Normal, RRR Abdomen Description: Positive: Other: - Abd. is soft with mild tenderness to RUQ. Negative rosario sign. No rebound or guarding. Musculoskeletal: Negative: Edema Left, Edema Right Neurological: Positive: Normal, CN Intact II-III Psychiatric: Positive: Affect/Mood Appropriate Procedures - Sedation Patient Received Moderate/Deep Sedation with Procedure: No Diagnostics - Vital Signs Vital Signs Temp Pulse Resp BP Pulse Ox 08/08/19 15:36 68 122/76 99 08/08/19 15:35 67 97 08/08/19 15:04 98.4 F 63 16 135/73 98 - Laboratory Lab Results: Lab Results 08/08/19 Range/Units 15:36 WBC 9.0 (3.5-10.8) 10^3/uL RBC 5.13 (4.18-5.48) 10^6 /uL Hgb 14.6 (14.0-18.0) g/dL Hct 44 (42-52) % MCV 85 (80-94) fL MCH 28 (27-31) pg MCHC 33 (31-36) g/dL RDW 15 (10-15) % Plt Count 228 (150-450) 10^3/uL MPV 7.5 (7.4-10.4) fL Neut % (Auto) 73.5 % Lymph % (Auto) 19.5 % [place] % (Auto) 5.0 % Eos % (Auto) 0.9 % Baso % (Auto) 1.1 % Absolute Neuts (auto) 6.7 (1.5-7.7) 10^3/ul Absolute Lymphs (auto) 1.8 (1.0-4.8) 10^3/ul Absolute Monos (auto) 0.5 (0-0.8) 10^3/ul Absolute Eos (auto) 0.1 (0-0.6) 10^3/ul Absolute Basos (auto) 0.1 (0-0.2) 10^3/ul Absolute Nucleated RBC 0.0 10^3/ul Nucleated RBC % 0.1 Result Diagrams: 08/08/19 15:36 08/08/19 15:36 Lab Statement: Any lab studies that have been ordered have been reviewed, and results considered in the medical decision making process. Abdominal Pain Male Course/Dx - Course Course Of Treatment: Pt. with epigastric pain about 5 hours ago that resolved with martha seltzer. Pt. has no other associated sxs and is currently pain free. He has mild RUQ pain on exam. Will obtain cardiac workup and GB us. ECG done at 1550 shows a sinus rhythm of 61bpm, normal axis, no STEMI. CBC unremarkalbe. CMP shows mild elvation in cr and mildy low mag. Negative troponin. CXR negative for acute findings per radiology. GB U/S negative for acute findings per radiology. Results discussed with pt., discussed potential admission for stress test for possible cardiac equivalent chest pain vs GERD. Pt. states he would prefer to be discharged home and f.u with his PCP. Pt. will return to the ER for increased pain, cp, sob, dizziness, or if concerned. Pt. understands and agrees with plan. Case discussed with Dr. Dawkins who is agreeable with plan. - Diagnoses Differential Diagnosis/HQI/PQRI: ACS, AMI, Gall Bladder Disease, Hepatitis, Pneumonia, Renal Colic, Ureteral Stone Provider Diagnoses: Epigastric pain Discharge ED - Sign-Out/Discharge Documenting (check all that apply): Patient Departure - Discharge Plan Condition: Improved Disposition: HOME Patient Education Materials: Epigastric Pain (ED) Referrals: Arabella Maurice MD [Primary Care Provider] - Additional Instructions: Call PCP tomorrow for follow up within 1-2 days for recheck Continue home medications as directed Return to ER for increased pain, chest pain, difficulty breathing, dizziness or if concerned - Billing Disposition and Condition Condition: IMPROVED Disposition: Home - Attestation Statements Provider Attestation: Patient presented to me by Quan GUTHRIE. Patient with both episodes of epigastric/right upper quadrant pain today that were relieved with antacids. Patient does have a history of multiple stents in the past but no history of acute IN or angina. Patient had a workup performed which is grossly unremarkable. Patient was offered admission for possible anginal equivalent and patient declined. Person never saw the patient and only discussed care with Quan GUTHRIE.
[2019-08-08 15:49] LABS: INR 1.08 (0.82-1.09)
[2019-08-08 16:04] LABS: Albumin 4.3 g/dL (3.2-5.2); Albumin/Globulin Ratio 1.4 (1-3); BUN/Creatinine Ratio 27.5 (8-20); C Reactive Protein 2.33 mg/L (<8.01); Calcium 10.3 mg/dL (8.6-10.3); EGFR Non-African American 59.5 (>60); Magnesium 1.7 mg/dL (1.9-2.7); Total Bilirubin 0.7 mg/dL (0.2-1.0); Total Protein 7.3 g/dL (6.4-8.9)
[2019-08-08 17:24] VITALS: BP 118/72
== END 2019-08-08 17:30 | disposition home or self-care (01) ==
LOC: ED 14:55
DX: R10.13 Epigastric pain (principal); I25.10 Atherosclerotic heart disease of native coronary artery without angina pectoris; I10 Essential (primary) hypertension; E78.5 Hyperlipidemia, unspecified; E11.9 Type 2 diabetes mellitus without complications; E78.00 Pure hypercholesterolemia, unspecified; Z87.891 Personal history of nicotine dependence; Z79.84 Long term (current) use of oral hypoglycemic drugs; Z79.82 Long term (current) use of aspirin; Z95.5 Presence of coronary angioplasty implant and graft; Z86.79 Personal history of other diseases of the circulatory system; Z87.442 Personal history of urinary calculi
CPT/HCPCS: 36415; 71045; 76705; 80053; 83605; 83690; 83735; 84484; 85025; 85610; 86140; 93005; 99283